=== PATIENT | female | born 1985 | race Caucasian/White ===

== ENCOUNTER 2017-07-09 08:21 | Emergency (ER) | payer MEDICAID, OTHER ==
[~2017-07-09] VITALS: Ht 149.9 cm; Wt 45.0 kg
[2017-07-09] MEDS ORDERED: NA PHOS,M-B/NA PHOS,DI-BA ENEMA 118ML PR ONE (08:45)
[2017-07-09 09:14] LABS: BASOPHILS % 0.5 % (0.0-2.0); EOSINOPHILS % 0.3 % (0.0-5.0); HEMATOCRIT. 40.6 % (36.0-48.0); HEMOGLOBIN. 14.6 g/dL (12.0-16.0); LYMPHOCYTES % 16.2 % (20.0-50.0); MEAN CORPUSCULAR HEMOGLOBIN 30.6 pg (28.0-32.0); MEAN CORPUSCULAR VOLUME 84.9 fL (81.0-99.0); MEAN PLATELET VOLUME 9.4 fl (7.4-10.4); MONOCYTES % 7.1 % (2.0-8.0); NEUTROPHILS % 75.9 % (40.0-76.0); PLATELET 237 x1000/uL (130-400); RED BLOOD CELL COUNT 4.78 mill/uL (4.2-5.4); RED CELL DISTRIBUTION WIDTH 13.2 % (11.6-14.6)
[2017-07-09 09:16] LABS: CHLORIDE 104 mEq/L (98-107)
[2017-07-09 09:17] LABS: INR 1.1; PROTHROMBIN TIME 11.1 sec (9.4-11.6)
[2017-07-09 09:32] LABS: CLARITY URINE CLEAR (CLEAR); COLOR URINE YELLOW (YELLOW); KETONES URINE NEGATIVE (NEGATIVE); LEUKOCYTE ESTERASE URINE NEGATIVE (NEGATIVE); NITRITE URINE NEGATIVE (NEGATIVE); OCCULT BLOOD URINE NEGATIVE (NEGATIVE); PROTEIN URINE NEGATIVE (NEGATIVE); SPECIFIC GRAVITY URINE 1.021 (1.005-1.030); UROBILINOGEN URINE 0.2 E.U./dL (0.2-1.0)
[2017-07-09] MEDS ORDERED: ACETAMINOPHEN 325MG TABLET PO ONE (10:45)
[2017-07-09 11:32] VITALS: BP 124/84
== END 2017-07-09 11:42 | disposition home or self-care (01) ==
LOC: ER 08:21
DX: K59.00 Constipation, unspecified (principal); Z98.1 Arthrodesis status
CPT/HCPCS: 36415; 80053; 81003; 81025; 83690; 85025; 85610; 99284

== ENCOUNTER 2018-09-11 08:02 | Emergency (ER) | payer MEDICAID ==
[~2018-09-11] VITALS: Ht 149.9 cm; Wt 42.0 kg
[2018-09-11] MEDS ORDERED: BENZONATATE 200MG CAPSULE PO ONE (09:15)
[2018-09-11] MEDS ORDERED: IBUPROFEN 200MG TABLET PO ONE (09:15)
[2018-09-11 09:29] VITALS: BP 107/56
== END 2018-09-11 09:32 | disposition home or self-care (01) ==
LOC: ER 08:02
DX: R05 Cough (principal)
CPT/HCPCS: 71045; 81025; 99283